=== PATIENT | female | born 1955 | race African-American/Black ===

== ENCOUNTER 2019-06-15 22:18 | Emergency (ER) | payer SELFPAY ==
[2019-06-15] MEDS ORDERED: FENTANYL CITR 100 MCG/2 ML ONE (23:03)
[2019-06-15 23:43] LABS: Absolute Lymphocytes (CBC) 1.4 K/uL (0.7-4.9); Basophils % 0.8 % (0-1.3); Hematocrit 32.1 % (36.0-45.0); Lymphocytes % 12.7 % (15.3-44.8); MPV 8.7 fL (7.6-11.3); RBC Red Blood Cell Count 3.37 M/uL (3.86-4.86)
[2019-06-16 00:21] LABS: Potassium 3.4 mmol/L (3.5-5.1)
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
[2019-06-16 03:41] VITALS: TEMP 98
[2019-06-16 03:45] VITALS: O2SAT 98
[2019-06-16 03:46] VITALS: BP 139/69
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
--- NOTE | 2019-06-17 06:15 | EKG ---
Test Date: 2019-06-15 Test Time: 22:54:56 Accounts Receivable Analyst: ABENA MEASUREMENT RESULTS: Intervals: Rate: 83 ME: 134 QRSD: 80 QT: 364 QTc: 427 [place]: P: 71 ME: 134 QRS: 35 T: -31 INTERPRETIVE STATEMENTS: Normal sinus rhythm Nonspecific T wave abnormality Abnormal ECG No previous ECG available for comparison Electronically Signed On 06-17-19 06:14:26 CDT by Flynn Sullivan
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
== END 2019-06-16 02:41 | disposition home or self-care (01) ==
LOC: ER 22:18
DX: S13.4XXA Sprain of ligaments of cervical spine, initial encounter (principal); S20.219A Contusion of unspecified front wall of thorax, initial encounter; S30.1XXA Contusion of abdominal wall, initial encounter; S60.222A Contusion of left hand, initial encounter; V59.40XA Driver of pick-up truck or van injured in collision with unspecified motor vehicles in traffic accident, initial encounter; I10 Essential (primary) hypertension
CPT/HCPCS: 36415; 70450; 71260; 72125; 74177; 80048; 85025; 93005; 96374; 99285; J3010; Q9967

== ENCOUNTER 2019-11-28 12:13 | Emergency (ER) | payer OTHER, SELFPAY ==
[2019-11-28] MEDS ORDERED: MECLIZINE HCL 12.5 MG TAB ONE (14:07)
[2019-11-28] MEDS ORDERED: DIAZEPAM 10 MG/2 ML INJ SYRINGE ONE (14:07)
[2019-11-28] MEDS ORDERED: ONDANSETRON 4 MG/2 ML VIAL ONE (14:08)
[2019-11-28 14:29] LABS: Absolute Lymphocytes (CBC) 1.1 K/uL (0.7-4.9); Basophils % 0.7 % (0-1.3); Hematocrit 37.1 % (36.0-45.0); Lymphocytes % 8.9 % (15.3-44.8); RBC Red Blood Cell Count 3.85 M/uL (3.86-4.86)
[2019-11-28 14:32] LABS: Protime INR 1.06
--- NOTE | 2019-11-28 14:34 | RAD REPORT ---
EXAM DESCRIPTION: CT - Head Brain Wo Cont - 11/28/2019 2:26 pm CLINICAL HISTORY: Dizziness COMPARISON: None. TECHNIQUE: Computed axial tomography of the head was obtained. IV contrast was not requested. All CT scans are performed using dose optimization technique as appropriate and may include automated exposure control or mA/KV adjustment according to patient size. FINDINGS: An intracranial bleed is not seen . The ventricles are normal in caliber. No extra-axial fluid collection is noted. Fluid within the sinuses/ mastoids is not seen. IMPRESSION: No acute intracranial abnormality is seen. If patient's symptoms persist MRI of the bra in would be recommended.
--- NOTE | 2019-11-28 14:43 | RAD REPORT ---
EXAM DESCRIPTION: Miguel Ángel Single View11/28/2019 2:33 pm CLINICAL HISTORY: Shortness of breath COMPARISON: none FINDINGS: The lungs appear clear of acute infiltrate. The heart is borderline enlarged IMPRESSION: No acute abnormalities displayed
[2019-11-28 14:59] LABS: ALT/SGPT 25 U/L (12-78); AST/SGOT 18 U/L (15-37); Albumin 3.9 g/dL (3.4-5.0); Alkaline Phosphatase 91 U/L (45-117); BUN Blood Urea Nitrogen 15 mg/dL (7-18); Bicarbonate 30 mmol/L (21-32); Bilirubin Direct 0.1 mg/dL (0-0.2); Bilirubin Total 0.5 mg/dL (0.2-1.0); Glucose Level 111 mg/dL (74-106); Magnesium 2.6 mg/dL (1.8-2.4); NT PRO-BNP 21 pg/mL (<125); Protein, Total 8.6 g/dL (6.4-8.2); Sodium Level 145 mmol/L (136-145); Troponin (Emerg Dept Use Only) < 0.02 ng/mL (0.0-0.045)
--- NOTE | 2019-11-28 15:00 | EKG ---
Test Date: 2019-11-28 Test Time: 14:29:46 Coat Tailor: NGUYEN MEASUREMENT RESULTS: Intervals: Rate: 68 NV: 136 QRSD: 80 QT: 396 QTc: 421 [place]: P: 77 NV: 136 QRS: 62 T: 61 INTERPRETIVE STATEMENTS: Sinus rhythm with premature atrial complexes Nonspecific T wave abnormality Abnormal ECG Compared to ECG 06/15/2019 22:54:56 Atrial premature complex(es) now present T-wave abnormality still present Electronically Signed On 11-28-19 15:00:03 CDT by Kalpesh Pal
[2019-11-28 15:12] LABS: Blood Morphology Comment NOT SEEN (NOT SEEN); Platelet Estimate ADEQ; Urine White Blood Cell Casts OK
--- NOTE | 2019-11-28 18:09 | ER ---
Nurse's Notes [facility] Name: Brigid Negrete Age: 64 yrs Sex: Female : 1955 Arrival Date: 11/28/2019 Time: 12:16 Bed 5 Private MD: Diagnosis: Other peripheral vertigo Presentation: 11/27 12:47 Chief complaint: Patient states: N/V/D, dizziness and trouble walking x 3 days. jl7 Coronavirus screen: The patient has NOT traveled to a country currently being monitored by the CDC within the last 14 days. Proceed with normal triage procedures. Ebola Screen: No symptoms or risks identified at this time. Initial Sepsis Screen: Does the patient meet any 2 criteria? No. Patient's initial sepsis screen is negative. Does the patient have a suspected source of infection? No. Patient's initial sepsis screen is negative. Risk Assessment: Do you want to hurt yourself or someone else? Patient reports no desire to harm self or others. Onset of symptoms was November 26, 2019. 12:47 Method Of Arrival: Wheelchair [facility] 12:47 Acuity: KARISHMA 2 jl7 Triage Assessment: 12:49 General: Appears in no apparent distress. uncomfortable, Behavior is cooperative, jl7 anxious. Pain: Complains of pain in right upper quadrant and left upper quadrant Pain currently is 7 out of 10 on a pain scale. Neuro: Level of Consciousness is awake, alert, obeys commands. Cardiovascular: Patient's skin is warm and dry. Respiratory: Airway is patent Respiratory effort is even, unlabored, Respiratory pattern is regular, symmetrical. GI: Reports diarrhea, nausea, vomiting. Derm: Skin is dry, Skin is normal, Skin temperature is warm. Historical: - Allergies: 12:49 Naproxen; jl7 - Home Meds: 12:49 None [Active]; jl7 - PMHx: 12:49 Hypertension; jl7 - PSHx: 12:49 None; jl7 - Immunization history:: Adult Immunizations up to date. - Social history:: Smoking status: Patient denies any tobacco usage or history of. Screenin:32 Abuse screen: Denies threats or abuse. Denies injuries from another. Nutritional hb screening: No deficits noted. Tuberculosis screening: No symptoms or risk factors identified. Fall Risk Total Barker Fall Scale indicates Low Risk Score (25-44 pts). Fall prevention measures have been instituted. Side Rails Up X 2 Frequent Obs/Assesments occuring As available Patient and Family Educated on Fall Prevention Program and strategies. Assessment: 13:15 General: Appears in no apparent distress. Behavior is calm, cooperative. Pain: Pain hb currently is 7 out of 10 on a pain scale. Neuro: Level of Consciousness is awake, alert, obeys commands, Oriented to person, place, time, situation, Reports dizziness. Cardiovascular: Heart tones S1 S2 present Capillary refill < 3 seconds Patient's skin is warm and dry. Respiratory: Airway is patent Respiratory effort is even, unlabored, Respiratory pattern is regular, symmetrical, Breath sounds are clear bilaterally. GI: Abdomen is non-distended, Bowel sounds present X 4 quads. Abd is soft and non tender X 4 quads. Reports lower abdominal pain, upper abdominal pain, diarrhea, nausea, vomiting. : No signs and/or symptoms were reported regarding the genitourinary system. EENT: No signs and/or symptoms were reported regarding the EENT system. Derm: Skin is intact, is healthy with good turgor. Musculoskeletal: No signs and/or symptoms reported regarding the musculoskeletal system. 14:00 Reassessment: Patient appears in no apparent distress at this time. Patient and/or hb family updated on plan of care and expected duration. Pain level reassessed. Patient is alert, oriented x 3, equal unlabored respirations, skin warm/dry/pink. 15:00 Reassessment: Patient appears in no apparent distress at this time. Patient and/or hb family updated on plan of care and expected duration. Pain level reassessed. Patient is alert, oriented x 3, equal unlabored respirations, skin warm/dry/pink. 15:55 Reassessment: Patient appears in no apparent distress at this time. Patient and/or hb family updated on plan of care and expected duration. Pain level reassessed. Patient is alert, oriented x 3, equal unlabored respirations, skin warm/dry/pink. 17:02 Reassessment: Patient appears in no apparent distress at this time. Patient and/or hb family updated on plan of care and expected duration. Pain level reassessed. Patient is alert, oriented x 3, equal unlabored respirations, skin warm/dry/pink. Vital Signs: 12:47 BP 153 / 77; Pulse 71; Resp 19 S; Temp 97.2(O); Pulse Ox 100% on R/A; Weight 77.11 kg jl7 (R); Height 5 ft. (152.40 cm); Pain 7/10; 14:00 BP 142 / 88; Pulse 55; Resp 16; Pulse Ox 98% on R/A; hb 15:30 BP 130 / 86; Pulse 54; Resp 15; Pulse Ox 99% on R/A; hb 17:00 BP 137 / 70; Pulse 66; Resp 15; Pulse Ox 98% on R/A; hb 12:47 Body Mass Index 33.20 (77.11 kg, 152.40 cm) jl7 ED Course: 12:16 Patient arrived in ED. ag5 12:49 Triage completed. jl7 12:49 Arm band placed on right wrist. jl7 13:21 Jeremiah Long PA is PHCP. jr8 13:21 Obey Singh MD is Attending Physician. jr8 14:06 Inserted saline lock: 22 gauge in right antecubital area, using aseptic technique. hb Blood collected. 14:20 Wai Mejia, RN is Primary Nurse. sg 14:[address] sg 14:32 Patient has correct armband on for positive identification. Bed in low position. Call hb light in reach. Side rails up X 1. 14:37 EKG done, by telegraph repeater technician. reviewed by Jeremiah MCCARTY. at1 18:08 Duarte Winston MD is Referral Physician. jr8 Administered Medications: 14:20 Drug: Zofran (Ondansetron) 4 mg Route: IVP; Site: right antecubital; sg 15:46 Follow up: Response: No adverse reaction hb 14:20 Drug: Valium 2 mg Route: IVP; Site: right antecubital; sg 15:46 Follow up: Response: No adverse reaction hb 14:22 Drug: Meclizine 25 mg Route: PO; hb 15:46 Follow up: Response: No adverse reaction hb Outcome: 18:09 Discharge ordered by . jr8 18:33 Patient left the ED. dm5 Signatures: Ivonne Burgos RN RN dm5 Wai Mejia, YOLI RN Jeremiah Puente PA PA jr8 Sarah Treviño, auditor in charge EKG Tat1 Kia Gee, RN RN hb Saskia Parnell RN RN jl7 Fareed Tanner ag5
--- NOTE | 2019-11-28 18:10 | EDPHYS ---
Physician Documentation [facility] Name: Brigid Negrete Age: 64 yrs Sex: Female : 1955 Arrival Date: 11/28/2019 Time: 12:16 Bed 5 Private MD: ED Physician Obey Singh HPI: 11/27 16:29 This 64 yrs old Black Female presents to ER via Wheelchair with complaints of Nausea, jr8 Dizziness, Trouble Walking. 16:29 The patient presents with dizziness, feeling off balance. Onset: The symptoms/episode jr8 began/occurred acutely, 2 day(s) ago. Context: occurred at home, occurred while the patient was sitting. Modifying factors: The symptoms are alleviated by nothing, the symptoms are aggravated by movement of head, standing up, changing position. Associated signs and symptoms: Pertinent positives: nausea, vomiting. Severity of symptoms: At their worst the symptoms were moderate in the emergency department the symptoms are unchanged. Patient's baseline: Neuro: alert and fully oriented, Motor: no deficits, Ambulation: walks without assistance, Speech: normal. The patient has not experienced similar symptoms in the past. The patient has not recently seen a physician. Historical: - Allergies: 12:49 Naproxen; jl7 - Home Meds: 12:49 None [Active]; jl7 - PMHx: 12:49 Hypertension; jl7 - PSHx: 12:49 None; jl7 - Immunization history:: Adult Immunizations up to date. - Social history:: Smoking status: Patient denies any tobacco usage or history of. ROS: 16:29 Eyes: Negative for injury, pain, redness, and discharge, ENT: Negative for injury, jr8 pain, and discharge, Neck: Negative for injury, pain, and swelling, Cardiovascular: Negative for chest pain, palpitations, and edema, Respiratory: Negative for shortness of breath, cough, wheezing, and pleuritic chest pain, Back: Negative for injury and pain, MS/Extremity: Negative for injury and deformity, Skin: Negative for injury, rash, and discoloration. 16:29 Abdomen/GI: Positive for nausea and vomiting, Negative for abdominal pain, diarrhea, constipation, abdominal cramps, abdominal distension. 16:29 Neuro: Positive for dizziness, gait disturbance, Negative for altered mental status, headache, numbness, seizure activity, speech changes, syncope, near syncope, tingling, tinnitus, tremor, visual changes, weakness. Exam: 16:29 Eyes: Pupils equal round and reactive to light, extra-ocular motions intact. Lids and jr8 lashes normal. Conjunctiva and sclera are non-icteric and not injected. Cornea within normal limits. Periorbital areas with no swelling, redness, or edema. ENT: Nares patent. No nasal discharge, no septal abnormalities noted. Tympanic membranes are normal and external auditory canals are clear. Oropharynx with no redness, swelling, or masses, exudates, or evidence of obstruction, uvula midline. Mucous membranes moist. Neck: Trachea midline, no thyromegaly or masses palpated, and no cervical lymphadenopathy. Supple, full range of motion without nuchal rigidity, or vertebral point tenderness. No Meningismus. Cardiovascular: Regular rate and rhythm with a normal S1 and S2. No gallops, murmurs, or rubs. Normal PMI, no JVD. No pulse deficits. Respiratory: Lungs have equal breath sounds bilaterally, clear to auscultation and percussion. No rales, rhonchi or wheezes noted. No increased work of breathing, no retractions or nasal flaring. Abdomen/GI: Soft, non-tender, with normal bowel sounds. No distension or tympany. No guarding or rebound. No evidence of tenderness throughout. Back: No spinal tenderness. No costovertebral tenderness. Full range of motion. Skin: Warm, dry with normal turgor. Normal color with no rashes, no lesions, and no evidence of cellulitis. MS/ Extremity: Pulses equal, no cyanosis. Neurovascular intact. Full, normal range of motion. Neuro: Awake and alert, GCS 15, oriented to person, place, time, and situation. Cranial nerves II-XII grossly intact. Motor strength 5/5 in all extremities. Sensory grossly intact. Cerebellar exam normal. Normal gait. 17:12 ECG was reviewed by the Attending Physician. jr8 Vital Signs: 12:47 BP 153 / 77; Pulse 71; Resp 19 S; Temp 97.2(O); Pulse Ox 100% on R/A; Weight 77.11 kg jl7 (R); Height 5 ft. (152.40 cm); Pain 7/10; 14:00 BP 142 / 88; Pulse 55; Resp 16; Pulse Ox 98% on R/A; hb 15:30 BP 130 / 86; Pulse 54; Resp 15; Pulse Ox 99% on R/A; hb 17:00 BP 137 / 70; Pulse 66; Resp 15; Pulse Ox 98% on R/A; hb 12:47 Body Mass Index 33.20 (77.11 kg, 152.40 cm) jl7 MDM: 13:21 Patient medically screened. 8 18:02 Data reviewed: vital signs, nurses notes, lab test result(s), EKG, radiologic studies, jr8 CT scan, plain films. Data interpreted: Pulse oximetry: on room air is 98 %. Interpretation: normal. Counseling: I had a detailed discussion with the patient and/or guardian regarding: the historical points, exam findings, and any diagnostic results supporting the discharge/admit diagnosis, lab results, radiology results, the need for outpatient follow up, a neurologist, to return to the emergency department if symptoms worsen or persist or if there are any questions or concerns that arise at home. Response to treatment: the patient's symptoms have mildly improved after treatment. ED course: Patient has improved. Unable to get MRI at this time. Incident started 2 days ago. No evolution of stroke seen on CT. Will continue medication at home. To f/u with Dr. Winsotn in a couple of days. Patient is good with this and will come back if worse . 11/27 12:57 Order name: Glucose, Ancillary Testing; Complete Time: 12:59 EDMS 11/27 13:22 Order name: Basic Metabolic Panel [facility] 11/27 13:22 Order name: CBC with Diff [facility] 11/27 13:22 Order name: LFT's [facility] 11/27 13:22 Order name: Magnesium [facility] 11/27 13:22 Order name: NT PRO-BNP [facility] 11/27 13:22 Order name: PT-INR [facility] 11/27 13:22 Order name: Troponin (emerg Dept Use Only) [facility] 11/27 14:41 Order name: CBC with Automated Diff; Complete Time: 15:30 EDMS 11/27 14:41 Order name: Protime (+INR); Complete Time: 14:43 EDMS 11/27 14:41 Order name: Glucose, Ancillary Testing; Complete Time: 14:43 EDMS 03/12 15:03 Order name: Basic Metabolic Panel; Complete Time: 15:30 EDMS 11/27 15:03 Order name: Liver (Hepatic) Function; Complete Time: 15:30 EDMS 11/27 15:03 Order name: Troponin (Emerg Dept Use Only); Complete Time: 15:30 EDMS 11/27 13:22 Order name: XRAY Chest (1 view) [facility] 11/27 13:22 Order name: EKG; Complete Time: 14:05 8 11/27 13:22 Order name: Cardiac monitoring; Complete Time: 14:21 8 11/27 13:22 Order name: EKG - Nurse/Tech; Complete Time: 15:46 8 11/27 13:22 Order name: IV Saline Lock; Complete Time: 14:21 8 11/27 13:22 Order name: Labs collected and sent; Complete Time: 14:21 jr8 11/27 13:33 Order name: CT Head Brain wo Cont 8 11/27 15:03 Order name: NT PRO-BNP; Complete Time: 15:30 EDMS 11/27 15:03 Order name: Magnesium; Complete Time: 15:30 EDMS 11/27 15:20 Order name: CBC Smear Scan; Complete Time: 15:30 EDMS 11/27 17:44 Order name: CT; Complete Time: 18:02 EDMS 11/27 17:44 Order name: RAD; Complete Time: 18:02 EDMS 11/27 13:22 Order name: O2 Per Protocol; Complete Time: 14:21 jr8 11/27 13:22 Order name: O2 Sat Monitoring; Complete Time: 14:21 jr8 EC:12 Rate is 68 beats/min. Rhythm is regular, Sinus Rhythm with PACs. QRS [place] is Normal. MT jr8 interval is normal at 136 msec. QRS interval is normal at 80 msec. QT interval is normal at 421 msec. No Q waves. T waves are Normal. T waves are Flattened in lead aVL. No ST changes noted. Clinical impression: NSR w/ Non-specific ST/T Changes and Sinus Rhythm with occasional PAC. Interpreted by me. Reviewed by me. Administered Medications: 14:20 Drug: Zofran (Ondansetron) 4 mg Route: IVP; Site: right antecubital; sg 15:46 Follow up: Response: No adverse reaction hb 14:20 Drug: Valium 2 mg Route: IVP; Site: right antecubital; sg 15:46 Follow up: Response: No adverse reaction hb 14:22 Drug: Meclizine 25 mg Route: PO; hb 15:46 Follow up: Response: No adverse reaction hb Disposition: 11/28 07:59 Co-signature as Attending Physician, Obey Singh MD I agree with the assessment and kdr plan of care. Disposition: 11/28/19 18:09 Discharged to Home. Impression: Other peripheral vertigo. - Condition is Stable. - Discharge Instructions: Vertigo. - Prescriptions for Zofran ODT 4 mg Oral tablet,disintegrating - place 1 tablet by TRANSLINGUAL route every 8 hours As needed; 12 tablet. Meclizine 25 mg Oral Tablet - take 1 tablet by ORAL route every 8 hours As needed; 30 tablet. Valium 2 mg Oral Tablet - take 1 tablet by ORAL route every 8 hours As needed; 20 tablet. - Medication Reconciliation Form, Thank You Letter, Antibiotic Education, Prescription Opioid Use form. - Work release form (11/29/19 15:31). eb - Follow up: Duarte Winston MD; When: 2 - 3 days; Reason: Recheck today's complaints, Continuance of care, Re-evaluation by your physician. - Problem is new. - Symptoms have improved. Signatures: Dispatcher [employer] EDMS Ivonne Burgos, RN RN dm5 Wai Mejia RN RN sg Rittger, Kevin, MD MD [facility] Jeremiah Long PA PA jr8 Naga Encinas, FARM WORKER-C FARM WORKER-Cla1 Kia Gee RN RN Saskia Parnell RN RN jl7 Lillie [place] [employer]: (The following items were deleted from the chart) 11/27 18:33 18:09 11/28/2019 18:09 Discharged to Home. Impression: Other peripheral vertigo. dm5 Condition is Stable. Forms are Medication Reconciliation Form, Thank You Letter, Antibiotic Education, Prescription Opioid Use. Follow up: Duarte Winston; When: 2 - 3 days; Reason: Recheck today's complaints, Continuance of care, Re-evaluation by your physician. Problem is new. Symptoms have improved. jr8
[2019-11-28 18:53] VITALS: TEMP 97.2
[2019-11-28 18:57] VITALS: BP 137/70; O2SAT 98
== END 2019-11-28 18:33 | disposition home or self-care (01) ==
LOC: ER 12:13
DX: H81.399 Other peripheral vertigo, unspecified ear (principal); I10 Essential (primary) hypertension; Z88.5 Allergy status to narcotic agent
CPT/HCPCS: 36415; 70450; 71045; 80048; 80076; 82947; 83735; 83880; 84484; 85025; 85610; 93005; 96374; 96375; 99284; J2405; J3360; J8597